=== PATIENT | female | born 1930 | race Caucasian/White ===

== ENCOUNTER 2016-12-13 17:07 | Emergency (ER) | payer MEDICARE, OTHER ==
--- NOTE | 2016-12-14 00:28 | ER ---
ADMIT: 12/13/2016 RM/LOC: ER [facility] MR#: [id number] [id number] [address] [place] [address] Emergency Room Report SEX: F AGE: 86 : 1930 DATE: 12/13/2016 HISTORY OF PRESENT ILLNESS: The patient is an 86-year-old female with a past medical history of hypertension and hypothyroidism, who is on Synthroid, came to the ER with chief complaint of hot flashes and feeling nauseous and dry heaving. The patient states incident happened today and she also complains of left lower anterior aching which is higher than the left upper quadrant per patient and is nonpleuritic and is very intermittent and nothing makes it better or worse, and per patient, it just waxes and wanes and disappears and comes back. The patient had last bowel movement today and it was normal. The patient states she was nauseous and just a few times she spit out few clear sputum. The patient denies any obvious abdominal pain or urinary symptoms. PHYSICAL EXAMINATION: GENERAL: The patient was in mild distress because she was nauseous, received Zofran in the ER and received half a liter of IV fluids. VITAL SIGNS: The patient was afebrile in the ER and blood pressure was stable. The patient was not tachycardic. EKG was negative for ST or T changes or arrhythmia. HEAD AND NECK: Positive for pale conjunctivae. Cardiac enzymes and troponin were also negative. CHEST: There was no obvious tenderness, bilateral equal breath sounds without any extra sounds. HEART: Normal S1, S2. ABDOMEN: Soft without any tenderness. There is no swelling in lower extremities. LABORATORY AND X-RAY DATA: The patient received GI cocktail and also received Reglan and Benadryl low-dose for controlling nausea. The patient has no abdominal tenderness. Lab workup showed lipase of 63 with AST of 27 and ALT of 20, and creatinine was 1.3, TSH was 7.0. WBC was 6.7 with hemoglobin of 10.2. UA was negative for rbc and wbc. Chest x-ray was positive with cardiomegaly with questionable right side infiltration versus rotation during the x-ray. The patient had no respiratory symptoms at all. The rest of the lab works were noncontributory. ADMIT: 12/13/2016 RM/LOC: ER [facility] MR#: [id number] [id number] [address] [place] [address] Emergency Room Report SEX: F AGE: 86 : 1930 EMERGENCY DEPARTMENT COURSE: The patient was observed and re-examined multiple times and the patient and her son in room were just questioned about the possibility of pain, which all the time the patient denied any abdominal pain. The patient states she had just left lower chest aching which comes and goes and is non-exertional and nonpleuritic. The patient received GI cocktail. The patient was observed and did not develop any new symptoms. DISPOSITION: With the diagnosis of gastritis, the patient was discharged to home with prescription and follow up with the primary doctor as needed. The patient was given strict return precautions to come back if there are any new symptoms or if there are any concerns. The patient and son acknowledged they understood it and agreed with the plan, and patient was discharged to home. Steven Isabel MD/ lora JOB #: [id number] CC: Walter Knutson MD, Attending Physician Clare Garcia MD, Family Physician
== END 2016-12-13 20:30 | disposition home or self-care (01) ==
LOC: ER 17:07
DX: K29.00 Acute gastritis without bleeding (principal); I10 Essential (primary) hypertension; E03.9 Hypothyroidism, unspecified; Z79.82 Long term (current) use of aspirin; Z79.899 Other long term (current) drug therapy

== ENCOUNTER → 2016-12-15 | Outpatient (CLI) | payer MEDICARE, OTHER | END | disposition home or self-care (01) | LOC: CARD 10:30 | DX: R00.1 Bradycardia, unspecified (principal); I49.1 Atrial premature depolarization; I49.3 Ventricular premature depolarization ==